=== PATIENT | female | born 1960 | race Two or more races ===

== ENCOUNTER 2016-11-01 05:15 | Emergency (ER) | payer OTHER ==
[2016-11-01 05:23] VITALS: BP 147/87; PULSE 81; RESP 16; TEMP 98.4; O2SAT 93
[2016-11-01] MEDS ORDERED: IBUPROFEN 600 MG TAB PO ONE (05:51)
[2016-11-01] MEDS ORDERED: IBUPROFEN 200 MG TAB PO ONE (05:53)
--- NOTE | 2016-11-01 05:57 | EDPHY ---
H & P Stated Complaint: CHENTE this am, R hand deformity, swelling & pain Time Seen by Provider: 11/01/16 05:43 HPI/ROS: HPI The patient presents with a fall which occurred just prior to arrival while she was walking at work. She thinks she slipped on something and fell forward onto her outstretched arms. Immediately after she develops severe, achy, right- sided wrist pain which is worse with movement of her wrist. She has no prior history of similar injury.. REVIEW OF SYSTEMS Constitutional: No fever, no chills. Skin: No rashes. Neurological: No headache. PMHx: Healthy Soc Hx: Works for the [employer] PHYSICAL General Appearance: Alert, no distress Eyes: Pupils equal and round no pallor or injection ENT, Mouth: Mucous membranes moist Respiratory: Breathing comfortably Neurological: A&O, moves all extremities Skin: Warm and dry, no rashes Musculoskeletal: Right wrist with obvious deformity, tender to palpation on dorsal aspect, limited range of motion secondary to pain, 2+ radial pulses, sensation intact to light touch, brisk cap refill of fingers Extremities: symmetrical, full range of motion Psychiatric: Patient is oriented X 3, there is no agitation Source: Patient Exam Limitations: No limitations - Personal History Current Tetanus/Diphtheria Vaccine: Unsure Current Tetanus Diphtheria and Acellular Pertussis (TDAP): Unsure - Medical/Surgical History Hx Asthma: No Hx Chronic Respiratory Disease: No Hx Diabetes: No Hx Cardiac Disease: No Hx Renal Disease: No Hx Cirrhosis: No Hx Alcoholism: No Hx HIV/AIDS: No Hx Splenectomy or Spleen Trauma: No Other PMH: denies - Social History Smoking Status: Never smoked Constitutional: Initial Vital Signs Temperature (C) 36.9 C 11/01/16 05:17 Heart Rate 81 11/01/16 05:17 Respiratory Rate 16 11/01/16 05:17 Blood Pressure 147/87 H 11/01/16 05:17 O2 Sat (%) 93 11/01/16 05:17 O2 Delivery Mode Room Air Allergies/Adverse Reactions: No Known Allergies Allergy (Unverified 11/01/16 05:22) Home Medications: Medication Instructions Recorded Hydrocodone/APAP 5/325 [[place] 1 - 2 tab PO Q6H PRN #15 tab 11/01/16 5/325 (*)] Medical Decision Making - Diagnostics Imaging: Right wrist-hand four views shows distal radius fracture involving dorsal aspect of wrist with minimal displacement, interpreted by me, radiology interpretation is pending. Procedures: SPLINT Procedure: Splint placement. A ortho glass volar splint was applied to the right wrist by [the tech]. After application of the splint I returned and re-examined the patient. The splint was adequately immobilizing the joint and distal to the splint the patient's circulation and sensation was intact. Differential Diagnosis: This is a 56-year-old female who presents with a fall onto an outstretched arm, now complaining of wrist pain. Differential diagnosis includes distal radius fracture, wrist sprain, ulnar fracture. X-rays were performed and showed distal radius fracture with minimal displacement. No need to reduce this given alignment is fairly good. I will refer her to Orthopedics, however this is a workman's comp injury so she may need to follow up through her work place. She will be placed in a wrist splint and discharged with pain medication. She is neurovascularly intact. - Data Points Medications Given: Discontinued Medications Ibuprofen (Motrin) 600 mg PO EDNOW ONE Stop: 11/01/16 05:54 Last Admin: 11/01/16 05:54 Dose: 600 mg Departure - Departure Disposition: Home, Routine, Self-Care Clinical Impression: Distal radius fracture, right Qualifiers: Encounter type: initial encounter Fracture type: closed Fracture morphology: unspecified fracture morphology Qualified Code(s): S52.501A - Unspecified fracture of the lower end of right radius, initial encounter for closed fracture Condition: Good Instructions: Wrist Fracture in Adults (ED), Splint Care (ED) Additional Instructions: I have given you the information for follow up with Orthopedics. You should make an appointment to be seen within the next 1 week. You should return to the emergency room if your worse in any way. You can take Tylenol as needed for the pain, if it is severe you can take [place] instead. Referrals: RYANNE VAZQUEZ [Other] - As per Instructions Jorge A Solorzano MD [Medical Doctor] - As per Instructions Prescriptions: Hydrocodone/APAP 5/325 [[place] 5/325 (*)] 1 - 2 tab PO Q6H PRN #15 tab PRN Reason: Pain, Breakthrough Print Language: Cam[place]
== END 2016-11-01 06:17 | disposition home or self-care (01) ==
DX: S52.571A Other intraarticular fracture of lower end of right radius, initial encounter for closed fracture (principal); W01.0XXA Fall on same level from slipping, tripping and stumbling without subsequent striking against object, initial encounter; Y99.8 Other external cause status; Y93.01 Activity, walking, marching and hiking
CPT/HCPCS: A4565